=== PATIENT | male | born 1980 | race Caucasian/White ===

== ENCOUNTER → 2016-07-25 | Outpatient (CLI) | payer BC ==
[~2016-07-25] MED LIST: CYCL15CA14 PO; HYDR-2762 PO; OXYC-244 PO; PHEN37.568 PO
--- NOTE | 2016-07-25 12:12 | KCIC ---
PROCEDURE MRI of the lumbar spine without contrast 07/25/2016 HISTORY Low back pain over the last 5 years. Bilateral foot numbness. TECHNIQUE Unenhanced T1 weighted and T2 weighted sagittal and axial inversion recovery sagittal images of the lumbar spine were obtained. FINDINGS Very mild lateral curvature of the lumbar spine is seen convex to the left. Degenerative signal changes and loss of height are seen involving the L5-S1 disc. Degenerative signal changes are seen within the marrow surrounding this disc. At the L1-2, L2-3 and L3-4 disc spaces there are minimal to mild generalized disc bulges. Degenerative changes are seen involving the facet joints bilaterally. There is mild ligamentum flavum hypertrophy. These findings do not result in significant central spinal canal or neural foraminal stenosis. At the L4-5 disc space there is a mild generalized disc bulge. Degenerative changes are seen involving the facet joints bilaterally. There is mild to moderate ligamentum flavum hypertrophy. These findings when combined do not result in significant central spinal canal or neural foraminal stenosis. At the L5-S1 disc space there is a mild generalized disc bulge. Superimposed on this disc bulge is a focal central disc protrusion. This measures 3 millimeters in AP diameter. Degenerative changes are seen involving the facet joints bilaterally. There is mild ligamentum flavum hypertrophy. These findings when combined do not result in significant central spinal canal or neural foraminal stenosis. IMPRESSION The changes of relatively mild degenerative disc disease are seen involving the lumbar spine. These findings do not result in significant central spinal canal or neural foraminal stenosis at any level. Electronically signed by: Reuben Suarez MD (Jul 25, 2016 12:10:55)
== END | disposition home or self-care (01) ==
LOC: KCIC MRI 09:06
PROVIDERS: ATTEND Physician Assistant Medical
DX: M54.5 Low back pain (principal)
CPT/HCPCS: 72148

== ENCOUNTER → 2016-10-02 | Outpatient (CLI) | payer BC ==
[~2016-10-02] MED LIST changes: +IOHEXOL 180 MG/ML 10 ML VIAL. ONE; +methylPREDNISolone ACETATE 40 MG/ML VIAL. ONE; +methylPREDNISolone ACETATE 80 MG/ML VIAL. ONE
--- NOTE | 2016-10-03 06:55 | PAIN ---
DATE OF SERVICE: 10/02/2016 DIAGNOSIS: Lumbar radiculopathy with lumbar herniated disk. HISTORY OF PRESENT ILLNESS: The patient is a 36-year-old male who returns for followup, last seen in 06/2015. The patient did very well after lumbar epidural steroid injection with about 75% improvement, but the pain has returned now over the past few weeks or about 2 months in the low back and left lower extremity as it was previously. The patient reports no new injuries, no new motor or sensory deficits. He has significant pain across the low back and in the left posterior gluteus, posterior thigh, lateral thigh, posterior calf to the ankle on the left side. Also, some pain in the mid and upper back and his left shoulder, but the main complaint is his low back pain with aching, sharp, shooting pain that is constant. The patient reports anywhere from a 3 to a 10 on a scale of 10, worse with standing, walking, changing positions or extended sitting in an upright position. The patient reports no new motor or sensory deficits, no new bowel or bladder incontinence or other complaints. PHYSICAL EXAMINATION: VITAL SIGNS: The patient's blood pressure is 134/92, pulse 78, respirations are 18, temperature is 98.2 degrees Fahrenheit, height is 6 feet 2 inches, weight is 266 pounds. GENERAL: The patient is awake, alert, oriented, appropriate, has very pleasant demeanor. HEENT: Shows normocephalic and atraumatic. Extraocular movements are intact and symmetrical. Oral cavity shows mucous membranes are moist and pink. Dentition is intact. NECK: Shows anterior throat supple without palpable lymphadenopathy noted. Swallow reflex is symmetrical. Neck shows full rotational motion of the cervical spine without difficulty. CHEST: Shows normal on inspection. Breath sounds are clear to auscultation bilaterally. HEART: Shows S1 and S2 clear. ABDOMEN: Soft, nontender, nondistended. No palpable organomegaly is noted. No new rebound or guarding demonstrated. BACK: Shows spine grossly in the midline. Normal-appearing thoracic kyphosis and lumbar lordotic curvature. Lumbar paraspinous musculature shows symmetrical with inspection. No evidence of atrophy or hypertrophy. No radiation of pain. No tenderness over the sacrum or sacroiliac regions. The lumbar paraspinous muscles with palpation shows normal muscle girth, some mild tenderness with palpation, but apparently even and symmetrical without radiation of pain with palpation without trigger points. The patient shows good rotational motion of the lumbar spine, both laterally as well as extension and flexion. EXTREMITIES: Lower extremities showed deep tendon reflexes at 2+ in the patellar and 1+ tendo calcaneus tendons. Motor exam is strong with 5/5 dorsiflexion, extension, quadriceps and hamstring flexion. Options were discussed with the patient. We will proceed with a lumbar epidural steroid injection. He has done very well with these in the past. Risks were again discussed including but not limited to bleeding, infection, possibility of epidural hematoma, subsequent neurologic compromise, dural puncture, headaches, spinal cord and/or nerve damage, side effects of steroid medication and poor results regarding pain control. The patient understands and wishes to proceed. The patient to return to the clinic in approximately 2 weeks for followup. He was counseled on his return appointment, activity level and side effects to be aware of. DIAGNOSIS: Lumbar radiculopathy with lumbar degenerative disk disease and lumbar herniated disk. PROCEDURE: Lumbar epidural steroid injection in translaminar approach at the L5-S1 level using C-arm fluoroscopic guidance under sterile prep and drape using local anesthetic. MEDICATIONS INJECTED: Depo-Medrol 120 mg plus 10 mL of preservative-free normal saline and 2 mL of Isovue for contrast. CONDITION AT DISCHARGE: Stable. The patient tolerated the procedure well, had no complications. JF KAUR MD DR: SRINI/freeman JOB#: [id number] / [id number]
== END | disposition home or self-care (01) ==
LOC: PNCL 13:04
PROVIDERS: ATTEND Anesthesiology
DX: M51.16 Intervertebral disc disorders with radiculopathy, lumbar region (principal)
CPT/HCPCS: 62323; J1030; J1040

== ENCOUNTER → 2017-09-06 | Outpatient (CLI) | payer BC ==
[~2017-09-06] MED LIST changes: -CYCL15CA14 PO; -HYDR-2762 PO; +IOHEXOL 180 MG/ML 10 ML VIAL.; -IOHEXOL 180 MG/ML 10 ML VIAL. ONE; -OXYC-244 PO; -PHEN37.568 PO; +methylPREDNISolone ACETATE 40 MG/ML VIAL.; -methylPREDNISolone ACETATE 40 MG/ML VIAL. ONE; +methylPREDNISolone ACETATE 80 MG/ML VIAL.; -methylPREDNISolone ACETATE 80 MG/ML VIAL. ONE
== END | disposition home or self-care (01) ==
LOC: PNCL 13:02
DX: M51.16 Intervertebral disc disorders with radiculopathy, lumbar region (principal); Z79.891 Long term (current) use of opiate analgesic; Z79.899 Other long term (current) drug therapy
CPT/HCPCS: 62323; J1030; J1040; Q9965

== ENCOUNTER → 2019-10-06 | Outpatient (CLI) | payer BC ==
[~2019-10-06] MED LIST changes: +CYCL15CA19 PO; +HYDR-2765 PO; -IOHEXOL 180 MG/ML 10 ML VIAL.; +LISI-334 PO; +OXYC1TAB19 PO; +PHEN37.598 PO; -methylPREDNISolone ACETATE 40 MG/ML VIAL.; -methylPREDNISolone ACETATE 80 MG/ML VIAL.
--- NOTE | 2019-10-06 08:46 | RAD ---
Chest, PA and Lateral: Technique: PA and lateral views of the chest were obtained. History: Chest pain, dyspnea. Comparison: None. Findings: The heart and pulmonary vasculature appear within normal limits. The lungs are clear. The pleural margins are clear. Impression: No acute chest process is seen. Electronically signed by: Cristhian Boyce MD (10/06/2019 8:43 AM) [id number]
--- NOTE | 2019-10-06 08:54 | RAD ---
PULMONARY PERFUSION IMG PARTIC History:Chest pain. Dyspnea. Comparison: Chest x-ray October 06, 2019 Findings: Perfusion examination was performed. Ventilation images not performed per guidelines. Perfusion images were acquired after the patient was injected with 5.5 mCi of technetium 99m MAA. No mismatched perfusion defect is identified. Impression: 1. Very low probability for pulmonary embolic disease. Electronically signed by: Javid Thomas DO (10/06/2019 8:52 AM) [id number]
== END | disposition home or self-care (01) ==
LOC: NM 07:50
PROVIDERS: ATTEND Internal Medicine Critical Care Medicine
DX: R07.89 Other chest pain (principal); R06.00 Dyspnea, unspecified; Z79.899 Other long term (current) drug therapy; Z79.891 Long term (current) use of opiate analgesic
CPT/HCPCS: 71046; 78580; 96374; A9540

== ENCOUNTER 2019-10-10 07:06 | Outpatient (CLI) | payer BC ==
[~2019-10-10] VITALS: Ht 188 cm; Wt 136.1 kg
[2019-10-10] VITALS (13 sets, daily range): BP systolic 109–155; BP diastolic 55–76
[2019-10-10] MEDS ORDERED: LIDOCAINE 1% PF 2 ML VIAL. ONE (07:38)
[2019-10-10 08:00] LABS: HEMATOCRIT 43.8 % (39.0-53.0); HEMOGLOBIN 14.7 g/dL (13.0-17.5); RED BLOOD COUNT 4.93 x10^6/uL (4.30-5.70); RED CELL DISTRIBUTION WIDTH 13.6 % (11.5-14.5); WHITE BLOOD COUNT 5.5 x10^3/uL (4.0-11.0)
[2019-10-10 08:10] LABS: PROTHROMBIN TIME PATIENT 12.3 SEC (11.7-14.0)
[2019-10-10 08:13] LABS: CREATININE 1.1 mg/dL (0.7-1.3); GFR 73.8; POTASSIUM 4.2 mmol/L (3.5-5.1)
[2019-10-10] MEDS ORDERED: METO25TA4 PO (08:17)
[2019-10-10] MEDS ORDERED: ISOS30TA4 PO (08:17)
[2019-10-10] MEDS ORDERED: TRAM50TA PO (08:17)
[2019-10-10] MEDS ORDERED: MIDAZOLAM HCL/PF 5 MG/5 ML VIAL. ONE (08:26)
[2019-10-10] MEDS ORDERED: fentaNYL PF VIAL 100 MCG/2 ML VIAL ONE (08:26)
[2019-10-10] MEDS ORDERED: NITROGLYCERIN 200 MCG/2 ML SYRINGE FOR CATH/VASC LAB. ONE (08:27)
[2019-10-10] MEDS ORDERED: VERAPAMIL 5 MG/2 ML VIAL. ONE (08:27)
[2019-10-10] MEDS ORDERED: HEPARIN for IV BOLUS 10,000 UNIT/10 ML VIAL. ONE (08:27)
[2019-10-10] MEDS ORDERED: CONTRAST GIVEN. MC PRN (08:45)
[2019-10-10] MEDS: IOHEXOL 300 MG/ML 100ML VIAL. IART ONE (08:54)
[2019-10-10] MEDS: fentaNYL PF VIAL 100 MCG/2 ML VIAL IV ONE (08:56)
[2019-10-10] MEDS: LIDOCAINE 1% PF 2 ML VIAL. INJ ONE (08:56)
[2019-10-10] MEDS: MIDAZOLAM HCL/PF 5 MG/5 ML VIAL. IV ONE (08:57)
[2019-10-10] MEDS: VERAPAMIL 5 MG/2 ML VIAL. IART ONE (08:57)
[2019-10-10] MEDS: NITROGLYCERIN 200 MCG/2 ML SYRINGE FOR CATH/VASC LAB. IART ONE (08:57)
[2019-10-10] MEDS: HEPARIN for IV BOLUS 10,000 UNIT/10 ML VIAL. IART ONE (08:58)
[2019-10-10 09:18] LABS: CHOLESTEROL/HDL RATIO 6.5
--- NOTE | 2019-10-10 09:58 | CARD ---
MR#: [id number] Date of Study: 10/10/2019 Ordering Physician: CHASE MONTEMAYOR, Referring Physician: CHASE MONTEMAYOR, Tech: RT Mendez (R) APPROVED REPORT Technologist: Terrell Aquino RT (R) Nurse: Kacey Messer R.N. Procedure(s) performed: Sedation Time: 28 Minutes Dose: 92.38 Gycm2 Fluoro Time: 3.0 Minutes Contrast: 96mL Omnipaque LHC, Coronary angiography, Left ventriculogram HISTORY The patient is a 39 year-old male with a history of : hypertension. INDICATION The indication(s) include : unstable angina , dyspnea. CS Clinical Frailty Scale [facility] Clinical Frailty Scale: Managing Well Heart Failure Heart Failure: No PROCEDURE NARRATIVE INFORMED CONSENT: After explaining the risks and benefits of the procedure and alternatives, informed consent was obtained. The patient was brought electively to the cardiac catheterization lab. A timeout was performed confi rming the patient's name, date of , procedure, and site of procedure. All necessary personnel w ere wearing the appropriate protective equipment and radiation monitor devices. (See nursing notes for medications administered). ACCESS: The right wrist was sterilely prepped and draped in the usual fashion. The right wrist was infiltrat ed with 1 mL of 2% lidocaine for subcutaneous anesthesia. A 6 Welsh Terumo glide sheath was inserte d into the right radial artery without difficulty. CORONARY ANGIOGRAPHY: Right and left coronary angiography was performed using a 6Fr TIG 4.0 catheter. Left ventricular en d diastolic pressure was obtained with a pigtail catheter and pullback was performed after left ventr iculography. All catheter exchanges and advancements were performed over a guidewire. CLOSURE: At case completion the right radial sheath was removed and a Terumo radial band was applied with 13 m l of air. COMPLICATIONS: The patient tolerated the procedure well and there were no immediate complications. FINDINGS: HEMODYNAMICS: LVEDP 13 mm Hg No gradient on LV to aortic pullback. AO: 128/78 LEFT VENTRICULOGRAM: EF 55% Anterobasal: Normal. Anterolateral: Normal Apical: Normal Diaphragmatic: Normal Posterobasal: Normal CORONARY ANGIOGRAPHY: LM is a large caliber vessel with normal angiographic appearance. LAD is a large caliber vessel with a distal 30% stenosis. D1 is a moderate caliber vessel with an ostial 30% stenosis. LCx is a moderate caliber non-dominant vessel with normal angiographic appearance. OM1 is a moderate caliber vessel with normal angiographic appearance. RCA is a large caliber dominant vessel with normal angiographic appearance. RPDA and RPL are moderate caliber vessels with normal angiographic appearance. Conclusion 1. Normal left sided filling pressures. 2. Low normal LV function. EF 50-55% 3. Minimal non-obstructive coronary disease with overall appearance suggestive of microvascular disea se. Recommendations Aggressive Medical Therapy Weight Loss Reduction Program Signed by : Chase Montemayor, Electronically Approved : 10/10/2019 09:58:09
[2019-10-10] MEDS ORDERED: 0.9 % SODIUM CHLORIDE 10 ML DISP.SYRIN. IV PRN (10:00)
[2019-10-10] MEDS ORDERED: NITROGLYCERIN SUBLINGUAL 0.4 MG BOTTLE OF 25. SL PRN (10:00)
[2019-10-10] MEDS ORDERED: diphenhydrAMINE 50 MG/ML VIAL IVP ONE (10:15)
[2019-10-10] MEDS ORDERED: ATOR20TA58 PO (10:31)
[2019-10-10] MEDS ORDERED: ASPI-630 PO (10:31)
[2019-10-10] MEDS ORDERED: ATORVASTATIN CALCIUM 20 MG TABLET PO SCH (21:00)
== END 2019-10-10 12:15 | disposition home or self-care (01) ==
LOC: CCL 07:06
PROVIDERS: ATTEND Internal Medicine Cardiovascular Disease
DX: I25.110 Atherosclerotic heart disease of native coronary artery with unstable angina pectoris (principal); I10 Essential (primary) hypertension; Z88.8 Allergy status to other drugs, medicaments and biological substances
CPT/HCPCS: 36415; 80048; 80061; 85027; 85610; 93458; C1769; C1892; J1644; J2250; J3010; J3490; Q9967; 99152; 99153

== ENCOUNTER → 2021-02-09 | Outpatient (CLI) | payer BC ==
[2019-10-10 11:35] VITALS: BP 151/55
[~2021-02-09] MED LIST changes: +ASPI-630 PO; +ATOR20TA58 PO; +ISOS30TA68 PO; -LISI-334 PO; +LISI20TA18 PO; +METO25TA4 PO; +TRAM50TA PO
--- NOTE | 2021-02-09 16:02 | KCIC ---
EXAM: Lumbar spine MRI without contrast. HISTORY: Lumbar strain. Bilateral lower extremity pain. TECHNIQUE: Multiplanar, multisequence magnetic resonance imaging of the lumbar spine was performed wi thout contrast. COMPARISON: 07/25/2016 FINDINGS: There is 3 mm retrolisthesis of L5 on S1. There is endplate remodeling and disc desiccation at this level. There is an L5 inferior endplate Schmorl's node. There is no fracture or suspicious o sseous lesion. The conus terminates at L1-L2. At L1-L2, L2-L3,, L3-L4 and L4-L5, there is minimal facet arthropathy. There is no stenosis. At L5-S1, there is a posterior central to right paracentral disc protrusion and 2 mm inferior extrusi on. There is also a left foraminal to extra foraminal disc protrusion and osteophyte complex. This is superimposed on a left lateral predominant disc bulge and endplate remodeling. There is mild retroli sthesis. There is mild bilateral facet arthropathy. There is mild to moderate left foraminal stenosis with abutment of the exiting left L5 nerve root. There is abutment or near abutment of the traversin g right S1 nerve root in the right lateral recess. IMPRESSION: 1. L5-S1: Degenerative change resulting in [id number] left foraminal stenosis with abutment of the exiting left L5 nerve root and narrowing of the right lateral recess with abutment or near abutme nt the traversing right S1 nerve root. 2. No additional significant stenosis or acute finding. Electronically signed by: Carmencita Austin MD (02/09/2021 4:00 PM) [id number]
== END ==
LOC: KCIC MRI 14:57
PROVIDERS: ATTEND Family Medicine
DX: S39.012A Strain of muscle, fascia and tendon of lower back, initial encounter (principal); M47.817 Spondylosis without myelopathy or radiculopathy, lumbosacral region; M43.17 Spondylolisthesis, lumbosacral region; M51.46 Schmorl's nodes, lumbar region; M51.27 Other intervertebral disc displacement, lumbosacral region; M48.07 Spinal stenosis, lumbosacral region; M48.8X7 Other specified spondylopathies, lumbosacral region; X58.XXXA Exposure to other specified factors, initial encounter; Y93.89 Activity, other specified; Y92.89 Other specified places as the place of occurrence of the external cause; Y99.8 Other external cause status
CPT/HCPCS: 72148

== ENCOUNTER → 2021-04-26 | Outpatient (CLI) | payer BC ==
[2019-10-10 11:35] VITALS: BP 151/55
[~2021-04-26] MED LIST changes: +IOHEXOL 180 MG/ML 10 ML VIAL. ONE; +LISI1TAB37 PO; +methylPREDNISolone ACETATE 40 MG/ML VIAL. ONE; +methylPREDNISolone ACETATE 80 MG/ML VIAL. ONE
--- NOTE | 2021-04-26 15:54 | PDOC1 ---
INITIAL PAIN CONSULT DATE OF SERVICE: DOS: DATE: 04/26/21 TIME: 15:47 CHIEF COMPLAINT: Chief Complaint: Low back and left lower extremity pain HISTORY OF PRESENT ILLNESS: 41-year-old male presents history of pain low back left lower extremity for many years worse over the past 6 months or so not the result of any specific injury or accident that he is aware but is been getting worse low back pain rating to the left lower extremity posterior gluteus posterior thigh posterior calf to the ankle on the left side. Patient reports is worse with walking and standing changing positions getting up from a seated position getting out of bed etc. Patient reports that sharp in the back throbbing and shooting in the leg tingling and numbness radiating pain in the lower extremity on the left side patient reports it wakes him from sleep least once or twice a night does not affect his bowel bladder control but does affect his ability walk he has not been using any assistive devices to ambulate. Patient rates disability rating 0-10 10 being the worst is a 6 with an responsibilities 3 with recreation and social activity 5 with occupation 7 with life support activities specially sleeping. Patient of MRI scan lumbar spine showing L5-S1 degenerative change resulting in mild to moderate left foraminal stenosis with abutment of the exiting left L5 nerve root and narrowing the right lateral recess with abutment of the rear traversing right S1 nerve root. Patient reports no loss of motor function but significant fatigability with the left leg specially with ambulation for more than 20 minutes. Patient continues to do stretching strength exercises and applying heat to the low back as well as taking [id number] analgesics but without significant reduction in pain. PAST MEDICAL HISTORY: PMH: Hypertension, hearing loss PREVIOUS SURGERIES: Past Surgical Hx: Tonsillectomy CURRENT MEDICATIONS: Current Meds: Active Scripts Medications Dose Route/Sig Max Daily Dose Days Date Category Lisinopril-Hctz 20-12.5 Mg Tab (Lisinopril/Hydrochlorothiazide) 1 Each Tablet 1 Tab PO DAILY 04/26/21 Reported Hydrocodone-Apap 7.5-325 (Hydrocodone Bit/Acetaminophen) 1 Tab Tablet 1 Tab PO PRN Q6HRS PRN 04/26/21 Reported Aspirin 81 Mg Tab.chew 1 Tab PO DAILY 10/10/19 Reported ALLERGIES; Allergies: Coded Allergies: cyclobenzaprine (Unverified Adverse Reaction, Mild, 04/22/15) feels drugged up naproxen (Unverified Adverse Reaction, Mild, 04/22/15) feels drugged up FAMILY HISTORY: Family Hx: Heart disease SOCIAL HISTORY: Social Hx: Patient is under alcohol does not smoke not use any illegal illicit recreational drugs is single lives locally in [facility] REVIEW OF SYSTEMS: ROS: Positive for those items mentioned in history of present illness, all systems are reviewed, otherwise negative ,and are complete full and well-documented on patient's chart. PHYSICAL EXAM: VS: Blood pressure is 166/85 pulse 109 respirations 18 temperature 98.2 F height is 6 feet 2 inches weight is 340 pounds PE: PHYSICAL EXAMINATION: GENERAL: The patient is awake, alert, oriented, appropriate, very pleasant demeanor HEENT: Shows normocephalic, atraumatic. Extraocular movements are intact and symmetrical. Oral cavity: Mucous membranes moist and pink. Dentition is intact. NECK: Shows anterior throat supple without palpable lymphadenopathy noted. Swallow reflex symmetrical. CHEST: Shows normal on inspection. Breath sounds are clear bilaterally, distant but no rales rhonchi or wheezes. HEART: Shows S1, S2 clear. No murmurs auscultated. ABDOMEN: Soft, nontender, nondistended, obese. No palpable organomegaly is noted. No rebound or guarding demonstrated. BACK: Shows spine grossly in the midline. Normal-appearing cervical lordotic curvature. There is mildly increased thoracic kyphosis, some flattening of the lumbar lordotic curvature. Lumbar paraspinous muscles show symmetrical on inspection, on palpation shows some moderate tenderness diffusely throughout the upper, middle and lower distribution of the paraspinous muscles bilaterally and also into the lower thoracic paraspinous musculature, firm and tender, but without specific trigger points, without radiation of pain. The patient has good rotational motion of the lumbar spine, both laterally as well as extension and flexion without significant difficulty. No tenderness over the spinous processes, sacrum or sacroiliac regions. EXTREMITIES: Lower extremities show deep tendon reflexes 2+ in the patellar and tendo calcaneus tendons. Motor exam is 5 on a scale of 5 with right dorsiflexion, extension, quadriceps and hamstring flexion and 4/5 on the left. Peripheral pulses are 1+ posterior tibial. No peripheral edema is noted bilaterally. Lower extremities are warm and dry to touch, equal in color and appearance. Straight leg raise noted to be positive on the left at approximately 45 degrees, right side is negative. Gaenslen's and Freddy's maneuvers are negative bilaterally. The patient is able to stand, stand on his toes without significant difficulty loss of balance, walks with a slight favoring gait does appear to favor the left lower extremity mildly but not use any assistive device such as canes or walkers to ambulate.. SKIN: Shows warm and dry, good turgor. No edema. No sores, rashes or bruising throughout. IMPRESSION: Impression: 41-year-old male with long history low back left lower extremity pain and radicular fashion worse over the past 6 months. MRI scan lumbar spine as noted Hypertension Hearing loss Plan: Options were discussed with the patient could exert medical management physical therapies interventional techniques. Patient like to pursue interventional techniques. We discussed a lumbar epidural steroid injections description as well as anatomical models described the procedure. Risks were discussed including but not limited to: Bleeding, infection, possibility of epidural hematoma and subsequent neurological compromise, dural puncture, headaches, spinal cord and/or nerve damage, side effects of steroid medication, and poor results regarding pain control. Patient understands and wished to proceed. Patient will return to clinic in approximate 2 weeks for follow-up, was counseled return appointment, activity level, and side effects beware. Procedure is lumbar epidural steroid injection under local anesthetic using sterile prep and drape at the L5-S1 level using C-arm fluoroscopic guidance in both AP and lateral views medications injected is 120 mg Depo-Medrol +10mL preservative-free normal saline and 2 mL contrast- condition at discharge is stable patient tolerated procedure well had no complications. JF KAUR MD Apr 26, 2021 15:54
--- NOTE | 2021-04-26 15:55 | PDOC4 ---
Procedure Note: ICD 10 Code: ICD 10 Code: M54.17 M4 8.07 M51.87 Procedure Note: Patient was consented for lumbar epidural steroid injection with fluoroscopic guidance. Risks were discussed including but not limited to: Bleeding, infection, possibility of epidural hematoma and subsequent neurological compromise, dural puncture, headaches, spinal cord and/or nerve damage, side effects of steroid medication, and poor results regarding pain control. Patient understands and wished to proceed. Procedure is lumbar epidural steroid injection under local anesthetic using janice rile prep and drape at the L5-S1 level using C-arm fluoroscopic guidance in both AP and lateral views medications injected is 120 mg Depo-Medrol +10mL preservative-free normal saline and 2 mL contrast- condition at discharge is stable patient tolerated procedure well had no complications. JF KAUR MD Apr 26, 2021 15:55
== END | disposition home or self-care (01) ==
LOC: PNCL 13:07
PROVIDERS: ATTEND Anesthesiology
DX: M51.17 Intervertebral disc disorders with radiculopathy, lumbosacral region (principal); M48.07 Spinal stenosis, lumbosacral region; M79.605 Pain in left leg; I10 Essential (primary) hypertension; F41.9 Anxiety disorder, unspecified; Z79.82 Long term (current) use of aspirin; Z79.899 Other long term (current) drug therapy; Z98.890 Other specified postprocedural states; Z88.8 Allergy status to other drugs, medicaments and biological substances
CPT/HCPCS: 62323; J1030; J1040; Q9965

== ENCOUNTER → 2021-06-24 | Outpatient (CLI) | payer BC ==
[2019-10-10 11:35] VITALS: BP 151/55
[~2021-06-24] MED LIST changes: -methylPREDNISolone ACETATE 40 MG/ML VIAL. ONE
--- NOTE | 2021-06-24 08:26 | PDOC ---
Progress Note - Pain Clinic Date of Service: DOS: DATE: 06/24/21 TIME: 08:20 Diagnosis: Dx: Lumbar radiculopathy with lumbar degenerative disease and lumbar spinal stenosis Osteoarthritis History or Present Illness: HPI: 41-year-old male returns status post lumbar epidural steroid injection x1 with about 80% improvement for several weeks following the injection which was in April 26, 2021 patient reports pain returning now especially over the past few days as significantly in the low back and left lower extremity posterior gluteus posterior thigh posterior calf into the foot she also reports new pain of her right upper extremity pain and base of the neck and shoulder pain only on the right side but is intermittent at this time. Patient reports pain in the low back and his left leg is returning essentially to baseline rate is a 10 on scale 10 is worse over the past week 8 on average 5 its least is a 5 today patient reported sharp and shooting stabbing radiating can be unbearable with prolonged standing moving changing positions. Patient reports he has been off work for the past few days because of the pain and that seems to decrease it when he is less active but is still very painful patient reports it wakes him from sleep about every 4-5 hours he is using a walker at home when he gets out of bed to get to his bathroom and back because he feels unstable on his feet especially with weightbearing on the left leg. Patient reports no loss of motor function but significant fatigability the left leg with weightbearing and sta nding. Patient reports no bowel or bladder incontinence. Physical Exam: VS: Blood pressure is 167/109 pulse 99 respirations 18 temperature 98.4 F height is 6 feet 2 inches weight is 335 pounds PE: PHYSICAL EXAMINATION: GENERAL: The patient is awake, alert, oriented, appropriate, very pleasant demeanor HEENT: Shows normocephalic, atraumatic. Extraocular movements are intact and symmetrical. Oral cavity: Mucous membranes moist and pink. Dentition is intact. NECK: Shows anterior throat supple without palpable lymphadenopathy noted. Swallow reflex symmetrical. CHEST: Shows normal on inspection. Breath sounds are clear bilaterally, no rales or rhonchi. HEART: Shows S1, S2 clear. No murmurs auscultated. ABDOMEN: Soft, nontender, nondistended. No palpable organomegaly is noted. BACK: Shows spine grossly in the midline. Normal-appearing cervical lordotic curvature. There is mildly increased thoracic kyphosis, some flattening of the lumbar lordotic curvature. Lumbar paraspinous muscles show symmetrical on inspection, on palpation shows some moderate tenderness diffusely throughout the upper, middle and lower distribution of the paraspinous muscles without specific trigger points, without radiation of pain. The patient has good rotational motion of the lumbar spine, both laterally as well as extension and flexion without significant difficulty. No tenderness over the spinous processes, sacrum or sacroiliac regions. EXTREMITIES: Lower extremities show deep tendon reflexes 2+ in the patellar and tendo calcaneus tendons. Motor exam is 5 on a scale of 5 with right dorsiflexion, extension, quadriceps and hamstring flexion and 4/5 on the left. Peripheral pulses are 1+ posterior tibial. No peripheral edema is noted bilaterally. Lower extremities are warm and dry to touch, equal in color and appearance. SKIN: Shows warm and dry, good turgor. No edema. No sores, rashes or bruising throughout. Procedure: Procedure: Options were discussed with the patient. Patient's old chart was reviewed his current medication regimen updated current review of systems updated today as well. We will proceed with a lumbar epidural steroid injections today with fluoroscopic guidance. Risks were discussed including but not limited to: Bleeding, infection, possibility of epidural hematoma and subsequent neurological compromise, dural puncture, headaches, spinal cord and/or nerve damage, side effects of steroid medication, and poor results regarding pain control. Patient understands and wished to proceed. Patient return to the clinic in approximately 4 weeks for follow-up, was counseled as to return appointment, activity level, and side effects to be aware of. Also will start new medication of meloxicam 15 mg once daily. Patient was given instruction as well as side effects beware with the medication. Medication Injected: Med Injected: Procedure is lumbar epidural steroid injection under local anesthetic using s terile prep and drape at the L5-S1 level using C-arm fluoroscopic guidance in both AP and lateral views medications injected is 120 mg Depo-Medrol +10mL preservative-free normal saline and 2 mL contrast- condition at discharge is stable patient tolerated procedure well had no complications. Condition at Discharge: Condition at Discharge: Condition at discharge stable, paced tolerated procedure well and no complications. JF KAUR MD Jun 24, 2021 08:26
--- NOTE | 2021-06-24 08:26 | PDOC4 ---
Procedure Note: ICD 10 Code: ICD 10 Code: M54.17 M51.87 M48.07 Procedure Note: Patient was consented for lumbar epidural steroid injection with fluoroscopic guidance. Risks were discussed including but not limited to: Bleeding, infection, possibility of epidural hematoma and subsequent neurological compromise, dural puncture, headaches, spinal cord and/or nerve damage, side effects of steroid medication, and poor results regarding pain control. Patient understands and wished to proceed. Procedure is lumbar epidural steroid injection under local anesthetic using ster ile prep and drape at the L5-S1 level using C-arm fluoroscopic guidance in both AP and lateral views medications injected is 120 mg Depo-Medrol +10mL preservative-free normal saline and 2 mL contrast- condition at discharge is stable patient tolerated procedure well had no complications. JF KAUR MD Jun 24, 2021 08:26
== END | disposition home or self-care (01) ==
LOC: PNCL 07:47
PROVIDERS: ATTEND Anesthesiology
DX: M51.16 Intervertebral disc disorders with radiculopathy, lumbar region (principal); M48.061 Spinal stenosis, lumbar region without neurogenic claudication; M19.90 Unspecified osteoarthritis, unspecified site; I10 Essential (primary) hypertension; F41.9 Anxiety disorder, unspecified; Z79.82 Long term (current) use of aspirin; Z79.899 Other long term (current) drug therapy; Z98.890 Other specified postprocedural states; Z88.8 Allergy status to other drugs, medicaments and biological substances
CPT/HCPCS: 62323; J1040; Q9965

== ENCOUNTER → 2021-08-19 | Outpatient (CLI) | payer BC ==
[2019-10-10 11:35] VITALS: BP 151/55
[~2021-08-19] MED LIST changes: +DEXAMETHASONE PRES.FREE 10 MG/ML VIAL. ONE; +MELO15TA23 PO; -methylPREDNISolone ACETATE 80 MG/ML VIAL. ONE
--- NOTE | 2021-08-19 11:11 | PDOC ---
Progress Note - Pain Clinic Date of Service: DOS: DATE: 08/19/21 TIME: 11:08 Diagnosis: Dx: Lumbar radiculopathy with lumbar degenerative disc disease and lumbar spinal stenosis History or Present Illness: HPI: 41-year-old male returns for follow-up status post lumbar epidural steroid injection x2 most recently June 24, 2021 patient reports over the past 2 months the pain was initially improved by about 65% but the pain is returning now in the low back and left lower extremity over the past 3 to 4weeks in the posterior gluteus posterior thigh posterior calf also with new pain on the right side of the low back which is always on the left side before some pain into the right posterior gluteus and posterior thigh not to the severity of the left side but significant which is new for him is becoming more weak in the left leg as well as difficulty with extension and flexion of the left ankle patient reports he is tripped a few times but has not fallen over the past few weeks patient reports pain is a 10 on scale 10 is worse over the past week 6 on average 3 to [place] is a 6 today patient describes as shooting in the legs aching and dull in the back sharp and alternating in the back radiating can be severe and unbearable with walking standing issues doing much better with distance walking doing household activities work activities travel with greater ease and comfort now the pain is returning and significant in the left lower extremity but now new pain again in the right lower extremity as well. Physical Exam: VS: Blood pressure is 149/109 pulse 99 respirations are 18 temperature is 98.6 F height is 6 foot 2 inches weight is 324 pounds. PE: PHYSICAL EXAMINATION: GENERAL: The patient is awake, alert, oriented, appropriate, very pleasant in demeanor HEENT: Shows normocephalic, atraumatic. Extraocular movements are intact and symmetrical. Oral cavity: Mucous membranes moist and pink. Dentition is intact. NECK: Shows anterior throat supple without palpable lymphadenopathy noted. Swallow reflex symmetrical. CHEST: Shows normal on inspection. Breath sounds are clear bilaterally, no rales or rhonchi. HEART: Shows S1, S2 clear. No murmurs auscultated. ABDOMEN: Soft, nontender, nondistended. No palpable organomegaly is noted. BACK: Shows spine grossly in the midline. Normal-appearing cervical lordotic curvature. There is slightly increased thoracic kyphosis, some moderate flattening of the lumbar lordotic curvature. Lumbar paraspinous muscles show symmetrical on inspection, on palpation shows some moderate tenderness diffusely throughout the upper, middle and lower distribution of the paraspinous muscles without specific trigger points, without radiation of pain. The patient has good rotational motion of the lumbar spine, both laterally as well as extension and flexion without significant difficulty. No tenderness over the spinous processes, sacrum or sacroiliac regions. EXTREMITIES: Lower extremities show deep tendon reflexes 2+ in the patellar and tendo calcaneus tendons. Motor exam is 5 on a scale of 5 with right dorsiflexion, extension, quadriceps and hamstring flexion and 4/5 on the left. Peripheral pulses are 1+ posterior tibial. No peripheral edema is noted bilaterally. Lower extremities are warm and dry. SKIN: Shows warm and dry, good turgor. No edema. No sores, rashes or bruising throughout. Procedure: Procedure: Risks were discussed including but not limited to: Bleeding, infection, possibility of epidural hematoma and subsequent neurological compromise, dural puncture, headaches, spinal cord and/or nerve damage, side effects of steroid medication, and poor results regarding pain control. Patient understands and wished to proceed.Options were discussed with the patient. Patient's chart was reviewed his current medication regimen updated current review of systems updated today as well. We will proceed with a lumbar epidural steroid injection stable fluoroscopic guidance. Patient will return to the clinic in approximately 2 weeks for follow-up, was counseled as to return appointment, activity level, and side effect to be aware of. Medication Injected: Med Injected: Procedure is lumbar epidural steroid injection under local anesthetic using sterile prep and drape at the L5-S1 level using C-arm fluoroscopic guidance in both AP and lateral views medications injected is 20 mg dexamethasone +10mL preservative-free normal saline and 2 mL contrast- condition at discharge is stable patient tolerated procedure well had no complications. Condition at Discharge: Condition at Discharge: Condition at discharge stable, patient tolerated the procedure well and had no complications. JF KAUR MD Aug 19, 2021 11:11
--- NOTE | 2021-08-19 11:12 | PDOC4 ---
Procedure Note: ICD 10 Code: ICD 10 Code: M54.17 M51.8 7 M4 8.07 Procedure Note: Patient was consented for lumbar epidural steroid injection with fluoroscopic guidance. Risks were discussed including but not limited to: Bleeding, infection, possibility of epidural hematoma and subsequent neurological compromise, dural puncture, headaches, spinal cord and/or nerve damage, side effects of steroid medication, and poor results regarding pain control. Patient understands and wished to proceed. Procedure is lumbar epidural steroid injection under local anesthetic using st erile prep and drape at the L5-S1 level using C-arm fluoroscopic guidance in both AP and lateral views medications injected is 20 mg dexamethasone +10mL preservative-free normal saline and 2 mL contrast- condition at discharge is stable patient tolerated procedure well had no complications. JF KAUR MD Aug 19, 2021 11:12
== END | disposition home or self-care (01) ==
LOC: PNCL 10:12
PROVIDERS: ATTEND Anesthesiology
DX: M51.16 Intervertebral disc disorders with radiculopathy, lumbar region (principal); M48.061 Spinal stenosis, lumbar region without neurogenic claudication; I10 Essential (primary) hypertension; F41.9 Anxiety disorder, unspecified; Z79.82 Long term (current) use of aspirin; Z79.899 Other long term (current) drug therapy; Z98.890 Other specified postprocedural states
CPT/HCPCS: 62323; J1100; Q9965

== ENCOUNTER → 2021-10-19 | Outpatient (CLI) | payer BC ==
[2019-10-10 11:35] VITALS: BP 151/55
[~2021-10-19] MED LIST changes: -DEXAMETHASONE PRES.FREE 10 MG/ML VIAL. ONE; -IOHEXOL 180 MG/ML 10 ML VIAL. ONE
--- NOTE | 2021-10-19 10:15 | KCIC ---
EXAM: Lumbar spine MRI without contrast. HISTORY: Lumbar radiculopathy. TECHNIQUE: Multiplanar, multisequence magnetic resonance imaging of the lumbar spine was performed wi thout contrast. COMPARISON: 02/09/2021 FINDINGS: There is 3 mm retrolisthesis of L5 on S1. There is degenerative endplate remodeling, disc s pace narrowing, disc desiccation and Schmorl's node formation at this level. There is no suspicious o sseous lesion. There is no acute or subacute fracture. The conus terminates at L1-2. At L1-2, L2-L3 and L3-L4, there is no stenosis. At L4-L5, there is a shallow left extraforaminal to lateral disc protrusion and annular tear. There i s mild bilateral facet arthropathy. There is no stenosis. At L5-S1, there is a right paracentral disc protrusion and left foraminal to extra foraminal disc pro trusion and osteophyte complex superimposed on a disc bulge and left lateral predominant endplate ost eophytosis. There is mild bilateral facet arthropathy. There is mild retrolisthesis. There is mild to moderate left foraminal stenosis with abutment the exiting left L5 nerve root. There is narrowing of the right lateral recess and abutment the traversing right S1 nerve root. IMPRESSION: 1. L5-S1: Degenerative change resulting in [id number] left foraminal stenosis with abutment the exiting left L5 nerve root and narrowing of the right lateral recess with abutment of the traversing right S1 nerve root. This is stable in appearance. 2. No additional significant stenosis or significant interval change. Electronically signed by: Carmencita Austin MD (10/19/2021 10:13 AM) [id number]
== END ==
LOC: KCIC MRI 07:55
PROVIDERS: ATTEND Family Medicine
DX: M51.27 Other intervertebral disc displacement, lumbosacral region (principal)
CPT/HCPCS: 72148